=== PATIENT | male | born 1985 | race Caucasian/White ===

== ENCOUNTER 2019-09-13 15:05 | Emergency (ER) | payer OTHER ==
[~2019-09-13] VITALS: Ht 167.6 cm; Wt 113.4 kg
[2019-09-13] MEDS ORDERED: NOHOMEMEDICATIONS (15:29)
[2019-09-13 15:42] LABS: ABSOLUTE NEUTROPHILS 12.4 thou/uL (1.4-8.2); BASOPHILS 0.7 % (0.0-2.0); EOSINOPHILS 0.1 % (0.0-3.0); HEMATOCRIT 49.3 % (42.0-52.0); HEMOGLOBIN 16.5 gm/dL (14.0-18.0); LYMPHOCYTES 12.6 % (24.0-44.0); MCH 30.6 pg (26.0-34.0); MCHC 33.4 g/dL (28.0-37.0); MCV 91.6 fL (80.0-100.0); MONOCYTES 7.2 % (1.0-8.0); PLATELET COUNT 316 thou/uL (150-400); POLYS 79.4 % (36.0-66.0); RBC 5.38 mil/uL (4.50-6.00); RDW 13.9 % (10.5-14.5); WBC 15.7 thou/uL (4.0-11.0)
[2019-09-13 15:53] LABS: ANION GAP 9 mmol/L (7-16); BUN 13 mg/dL (7-18); CALCIUM 9.2 mg/dL (8.5-10.1); CHLORIDE 102 mmol/L (98-107); CO2 27 mmol/L (21-32); CREATININE 1.2 mg/dL (0.7-1.3); GLUCOSE 99 mg/dL (74-106); POTASSIUM 4.3 mmol/L (3.5-5.1); SODIUM 138 mmol/L (136-145)
[2019-09-13 15:59] LABS: ALBUMIN 3.6 g/dL (3.4-5.0); SALICYLATE 3.4 mg/dL (2.8-20.0); SGOT 26 U/L (15-37); SGPT 33 U/L (30-65); TOTAL BILIRUBIN 0.9 mg/dL (<0.1-1.0); TOTAL PROTEIN 7.7 g/dL (6.4-8.2)
[2019-09-13 16:07] LABS: APTT 25.9 Seconds (24.5-32.8); PROTIME 9.8 Seconds (9.3-11.4)
[2019-09-13] MEDS ORDERED: NORCO 5-325 TA1 EAC1 PO (18:36)
[2019-09-13] MEDS ORDERED: NAPROSYN500 MG PO (18:39)
[2019-09-13 18:45] LABS: URINE BLOOD NEGATIVE (Negative); URINE CLARITY CLEAR; URINE COLOR YELLOW; URINE GLUCOSE-RANDOM* NEGATIVE (Negative); URINE KETONES NEGATIVE (Negative); URINE LEUKOCYTES-REFLEX NEGATIVE (Negative); URINE NITRITE-REFLEX NEGATIVE (Negative); URINE PROTEIN (DIPSTICK) NEGATIVE (Negative); URINE UROBILINOGEN 0.2 E.U./dl (0.2-1.0)
[2019-09-13 18:49] LABS: ICTOTEST (BILI CONFIRMATORY) Negative (Negative); URINE BILIRUBIN NEGATIVE (Negative)
[2019-09-13 18:54] LABS: AMP/METHAMP Negative (Negative); BARBITURATES Negative (Negative); BENZODIAZEPINES Negative (Negative); COCAINE Negative (Negative); METHADONE Negative (Negative); OPIATES POSITIVE (Negative); PCP Negative (Negative)
[2019-09-13 19:15] VITALS: BP 133/85
== END 2019-09-13 19:15 | disposition home or self-care (01) ==
LOC: ER 15:05
PROVIDERS: Emergency Medicine
DX: S83.8X1A Sprain of other specified parts of right knee, initial encounter (principal); S20.211A Contusion of right front wall of thorax, initial encounter; S40.211A Abrasion of right shoulder, initial encounter; F17.210 Nicotine dependence, cigarettes, uncomplicated; V29.9XXA Motorcycle rider (driver) (passenger) injured in unspecified traffic accident, initial encounter; Y93.89 Activity, other specified; Y92.89 Other specified places as the place of occurrence of the external cause; Y99.8 Other external cause status